=== PATIENT | female | born 1995 ===

== ENCOUNTER 2024-05-17 09:36 | Outpatient (AMB) | payer OTHER, SELFPAY ==
--- NOTE | 2024-05-17 10:26 | MHC.PC.OV ---
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 Intake Note: patient is scheduled to establish care with pcp Research Scientist Required: No Is last menstrual period known: Yes Last menstrual period: 05/17/24 Post menopausal: No Patient : No Allergies amoxicillin Allergy (Severe, Verified 05/17/24 10:28) Hives Medication List - Last Reconciled 05/17/24 by Lamont Rose MD albuterol sulfate 90 mcg/actuation 1 inh inhalation QID cetirizine 10 mg PO DAILY L norgest/e.estradiol-e.estrad 0.15 mg-30 mcg (84)/10 mcg (7) (Simpesse) 1 tab PO DAILY levocetirizine 5 mg PO DAILY Tobacco use date assessed: 05/17/24 Dental Screening Dental Screen Date: 05/17/24 Did you have a dental visit in the last 12 months?: Yes Did you have a dental problem in the last 6 months where you did not have access to dental care?: No Was dental information given to patient?: No HPI 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 ?? Prior PCP:Shira Farfan Last office visit/CPE:? 2 years Acute issue(s):? Asthma, Allergies Weight Mild + PHQ9l ?? PMHx:? Asthma SurgHx:?None FHx:? Mom: Anxiety, Bipolar d.o., MS, Asthma. Dad: Cardiovascular disease. Aunt w/ Breast CA. SocHx:? Nonsmoker. EtOH: Occassional [address] dr at holidays. No drugs PFSH Medical History (Updated 05/17/24 @ 11:07 by Harry Cortes) Anxiety Headache Asthma Family History (Updated 05/17/24 @ 10:38 by Avery [facility]paricio [facility] Mother Asthma Multiple sclerosis Father High blood pressure High cholesterol Cardiovascular disease Paternal Grandmother High blood pressure High cholesterol Diabetes Cardiovascular disease Paternal Grandfather High cholesterol Diabetes Maternal Grandfather Diabetes Sister Bipolar 1 disorder Anxiety Social History Housing: Apartment Patient Tobacco Use Status: Never used Tobacco e-Cigarette/Vaping Use: Never Used Second Hand Smoke Exposure: No service: No Current occupational status: employed Current occupation: [employer] Current occupational exposures/hazards: No Cognitive needs: No Hearing needs: No Vision needs: Yes Female Reproductive History Menstrual Date of last menstrual period: 05/17/24 Questionnaire PHQ-9 Over the last 2 weeks, how often have you been bothered by any of the following problems? 1. Little interest or pleasure in doing things: several days 2. Feeling down, depressed, or hopeless: several days 3. Trouble falling or staying asleep, or sleeping too much: several days 4. Feeling tired or having little energy: several days 5. Poor appetite or overeating: several days 6. Feeling bad about yourself - or that you are a failure or have let yourself or your family down: more than half the days 7. Trouble concentrating on things, such as reading the newspaper or watching television: several days 8. Moving or speaking so slowly that other people could have noticed. Or the opposite - being so fidgety or restless that you have been moving around a lot more than usual: not at all 9. Thoughts that you would be better off or of hurting yourself in some way: not at all Total score: 8 Depression Screening Interpretation: Positive Depression Screening Follow-up: Community Mental Health Worker F/U Depression Screening Done: Yes 48758 - PHQ-9 Billing: Yes Source: Developed by Drs. Tl Olivo, Sayda Cox, Tulio Wiggins and colleagues, with an educational winston from [email or web address]. Thrive Questionnaire Date Thrive assessed: 05/17/24 I am a: Patient What is your living situation today?: I have a steady place to live Within the past 12 months, did the food you bought not last and you didn't have the money to get more?: Often true Within the past 12 months, did you worry whether your food would run out before you got money to buy more?: Often true Do you have trouble paying for medicines?: Yes Do you have trouble getting transportation to medical appointments?: No Do you have trouble paying your heating and electricity bill?: Yes Do you have trouble taking care of your child, family member or friend?: No Do you have trouble with day-to-day activities such as bathing, preparing meals, shopping, managing finances, etc.?: No Are you currently unemployed and looking for a job?: No Are you interested in more education?: No Please select the resources that you would like help with: Food and Paying for medicine Currently or been in a relationship where the following occur: No concerns reported THRIVE Score: 3 AUDIT C Alcohol Use Questionnaire (AUDIT-C) 1. How often do you have a drink containing alcohol?: Monthly or less 2. How many drinks containing alcohol do you have on a typical day when you are drinking?: 1 or 2 3. How often do you have six or more drinks on one occasion?: Never Total Score: 1 LINDA-7 AMB Questionnaire LINDA-7 Date ILNDA - 7 assessed: 05/17/24 Feeling nervous, anxious, or on edge: 1 = Several days Not being able to stop or control worryin = Several days Worrying too much about different things: 1 = Several days Trouble relaxin = Several days Being so restless that it is hard to sit still: 1 = Several days Becoming easily annoyed or irritable: 1 = Several days Feeling afraid as if something awful might happen: 0 = Not at all Total LINDA-7 score (0-4 normal; 5-9 mild; 10-14 moderate; 15-21 severe): 6 Source: Developed by Drs. Tl Olivo, Sayda Cox, Tulio Wiggins and colleagues, with an educational winston from [email or web address]. LINDA-7 Assessment Billing LINDA-7 Assessment Tool: LINDA-7 Assessment 65886 Review of Systems Const Denies chills, Denies fatigue, Denies fever(s), Denies headache(s) and Denies weakness ENT Denies dizziness and Denies headache(s) Card Denies dyspnea Resp Denies cough, Denies dyspnea, Denies wheezing and Denies other (shortness of breath) Musc Denies numbness and Denies tingling Neuro Denies dizziness, Denies headache(s), Denies numbness, Denies tingling and Denies weakness Psych Reports anxiety and Reports depression Endo Denies fatigue Aller/Immun Denies wheezing Physical exam (Primary Care) Vital Signs: Last Vital Signs Temp 99.2 F 05/17/24 10:39 Pulse 91 05/17/24 10:39 Resp 12 04/07/25 10:39 BP 110/70 05/17/24 10:39 Pulse Ox 99 05/17/24 10:39 Oxygen Delivery Method Room Air 05/17/24 10:39 BMI result Body Mass Index 37.7 Tobacco/Smoking Status: Tobacco use Status Tobacco use date assessed 05/17/24 05/17/24 10:42 Patient Tobacco Use Status Never used Tobacco 05/17/24 10:42 e-Cigarette/Vaping Use Never Used 05/17/24 10:42 PHQ-9: PHQ-9 Score PHQ-9: Total score 8 05/17/24 10:50 Depression Screening Interpretation: Positive Depression Screening Follow-up: Community Mental Health Worker F/U Thrive Assessment: Date of Thrive Assessment Date Thrive assessed 05/17/24 05/17/24 10:42 Currently or been in a relationship where the following occur: No concerns reported Const General: well developed; No acute distress Nutritional Appearance: well nourished and obese Orientation/consciousness: patient oriented x3 HENMT Head: Yes normocephalic and Yes atraumatic Eyes General: appearance normal, both eyes and all related structures Pupils: Equal, round and reactive pupils present EOM: EOMs intact bilaterally Resp Effort & Inspection: normal respiratory effort Neuro General: patient oriented x3 and gait normal Cranial nerves: Yes Equal, round and reactive pupils present Psych Affect: normal affect Coding Level of Care Code New Pt Level 3 (53088) Diagnoses Depression with anxiety F41.8 Asthma J45.909 Allergies T78.40XA Obesity E66.9 Screening for STD (sexually transmitted disease) Z11.3 Laboratory exam ordered as part of routine general medical examination Z00.00 Additional Codes LINDA-7 Assessment Billing - LINDA-7 Assessment Tool: LINDA-7 Assessment 08963 ([id number]) PHQ-9 - 67465 - PHQ-9 Billing: Yes ([id number]) Assessment & Plan Assessment & Plan (1) Depression with anxiety: Code(s): F41.8 - Other specified anxiety disorders Category: Medical Plan: Mild?anxiety?depression Will?ask?the?nurse?navigator?to?help?connect?her?with?a?therapist (2) Asthma: Code(s): J45.909 - Unspecified asthma, uncomplicated Category: Medical Plan: Mild?intermittent?asthma?with?allergy?triggers Continue?albuterol She?was?on?a?few?medications?for?allergy?and?we?will?restart?these Referred?to?immunology (3) Allergies: Code(s): T78.40XA - Allergy, unspecified, initial encounter Category: Medical Plan: As?above,?referred?to?immunology (4) Obesity: Code(s): E66.9 - Obesity, unspecified Category: Medical Plan: Check?labs Can?review?at?next?visit (5) Screening for STD (sexually transmitted disease): Code(s): Z11.3 - Encounter for screening for infections with a predominantly sexual mode of transmission Category: Medical Plan: Asymptomatic (6) Laboratory exam ordered as part of routine general medical examination: Code(s): Z00.00 - Encounter for general adult medical examination without abnormal findings Category: Medical Plan: Check labs Orders: Orders Comprehensive [place]. Panel Fast Today Z00.00 - Encounter for general adult medical examination without abnormal findings Microalbumin, Random (w Creat) Today I10 - Essential (primary) hypertension TSH reflex Free T4 Today Z00.00 - Encounter for general adult medical examination without abnormal findings UA CC w/rflx Micro + Cult Today Z00.00 - Encounter for general adult medical examination without abnormal findings Complete Blood Count Auto Diff Today Z00.00 - Encounter for general adult medical examination without abnormal findings Lipid Panel Today Z00.00 - Encounter for general adult medical examination without abnormal findings CT NG by PCR Today Z11.3 - Encounter for screening for infections with a predominantly sexual mode of transmission HIV Ab/Ag Today Z11.3 - Encounter for screening for infections with a predominantly sexual mode of transmission Hepatitis B,C Profile Today Z11.3 - Encounter for screening for infections with a predominantly sexual mode of transmission Syphilis Screen Today Z11.3 - Encounter for screening for infections with a predominantly sexual mode of transmission Referrals Nurse Navigator Referral F41.8 - Other specified anxiety disorders Allergy & Immunology Referral J45.489 - Unspecified asthma, uncomplicated, T78.40XA - Allergy, unspecified, initial encounter Medications: New levocetirizine 5 mg PO DAILY 90 days 90 tabs 3RF T78.40XA - Allergy, unspecified, initial encounter cetirizine 10 mg PO DAILY 90 days 90 tabs 3RF montelukast (Singulair) 10 mg PO DAILY 90 days 90 tabs 0RF J45.909 - Unspecified asthma, uncomplicated, T78.40XA - Allergy, unspecified, initial encounter
[2024-05-17 10:39] VITALS: BP 110/70; PULSE 91; RESP 12; TEMP 37.3; O2SAT 99; BMI 37.7
--- OUTSIDE RECORDS SUMMARY | 2024-05-17 10:55 | XMS_ITS | Clinical Summary ---
Author Organization [facility] it Address [address] [place] [address] Care Team Providers Care Aerospace Project Engineer Name Role Phone Marguerite Melchor MD Primary Care Provider [phone] Allergies Active Allergy Reactions Criticality Noted Date Comments Other Runny nose 02/05/2018 SEASONAL ALLERGIES Penicillins 10/04/2019 Medications predniSONE (DELTASONE) 20 mg tablet Take 3 tablets by mouth on day 1-2, take 2 tablets by mouth on day 3-4, take 1 tablet by mouth on days 5-6. Take with food in the morning. 9 Active L norgest/e.estra dioL-e.estrad (SEASONIQUE) 0.15 mg-30 mcg (84)/10 mcg (7) per tablet Take 1 Tablet by mouth daily. 4 Active cetirizine (ZyrTEC) 10 mg tablet Take 1 Tablet by mouth daily. 4 Active EPINEPHrine (EpiPen 2-Donell) 0.3 mg/0.3 mL injection Inject 0.3 mg into the muscle as needed for Other (anaphylactic reaction). 2-pack. Fill with whichever brand is covered by insurance. 4 Active fluticasone propionate (FLONASE) 50 mcg/actuation nasal spray 2 Sprays by Each Nare route daily for 360 days. 4 Active albuterol HFA (PROAIR HFA ; PROVENTIL HFA ; VENTOLIN HFA) 90 mcg/actuation inhaler Inhale 2 Puffs into the lungs every 6 hours as needed for Cough or Wheezing. 3 Active Active Problems Problem Noted Date Diagnosed Date Asthma 06/29/2018 Overweight (BMI 25.0-29.9) 02/05/2018 Allergic rhinitis 01/16/2018 Overview (12/23/2023): Cetirizine, Benadryl Allergy Borderline hypercholesterolemia 12/31/2017 Immunizations Name Administration Dates Next Due DTaP (Infanrix) 6wks to less than 7yo ,03/05/1999,05/19/1998,03/21,01/24/1998 PUpD-HJK-PPH (Pentacel) 2mo to less than 5yo 03/05/1999,05/19/1998,03/21/1998,01/24 H1N1 Inj Preservative Free 02/17/2009 HPV, Quadrivalent 10/05/2007,06/01/2007,03/31/19 08 Hepatitis B (Ezvdplg-D-Ueyzp , Recombivax HB-Adult) 19yo and older 02/16/2020,07/01/2018,02/04/2018,12/31,05/19/1998,03/21/1998,01/24/1998 HiB 03/05/1999 IPV Inactivated polio (Ipol) 6wks and older 2001,05/19/1998,03/21/1998,01/24 Influenza trivalent, 0.5mL, preservative free (Fluarix; FluLaval; Fluzone) ages 6mo and older (Afluria) 3 years and older 12/01/2019 MMR, measles mumps and rubel la Live (Priorix; M-M-R II) 12mo and older 2001,12/04/1998 Meningococcal MCV4P 06/15/2015,04/04/2010 Pneumococcal polysaccharide 23 valent (Pneumovax 23) 2yo and older 04/16/2019 Tdap Tetanus diptheria acell ular pertussis (Boostrix; Adacel) 7yo and older 02/16/2020,04/04/2010 Varicella live (Varivax) 12m o and older 06/01/2007,12/04/1998 Surgical History Surgery Date Site/Laterality Comments OTHER SURGICAL HISTORY PROCEDURE: DENIES PREVIOUS SURGERY Medical History Medical History Date Comments Allergic rhinitis 01/16/2018 DX:Allergic rh initis; COMMENT: Cetirizine, Benadryl Allergy Borderline hypercholesterolemia 12/31/2017 DX:Borderline hypercholesterolemia Overweight (BMI 25.0-29.9) 02/05/2018 DX:Ov erweight (BMI 25.0-29.9) Asthma 06/29/2018 DX:Asthma Family History Medical History Relation Name Comments Coronary artery disease Father Drug abuse Father No Known Problems Maternal Grandfather No Known Problems Maternal Grandmother Bipolar disorder Mother Depression Mother Multiple sclerosis Mother Asthma, Hypertension,Hypercholesterolemia Diabetes Paternal Grandfather ag e 70 No Known Problems Paternal Grandmother ADD / ADHD Sister Breast cancer Neg Hx Cervical cancer Neg Hx Ovarian cancer Neg Hx Uterine cancer Neg Hx Relation Name Status Comments Father Maternal Grandfather Alive Maternal Grandmother Alive Mother Alive Paternal Grandfather Paternal Grandmother Alive Sister Alive Social History Tobacco Use Types Packs/Day Years Used Date Smoking Tobacco: Never Smokeless Tobacco: Never Alcohol Use Standard Drinks/Week Comments No 0 (1 standard drink = 0.6 oz pur e alcohol) Comments Unknown Sex and Gender Information Value Date Recorded Sex Assigned at Not on file Legal Sex Female 10:55 PM EST Gender Identity Not on file Sexual Orientation Not on file Obstetrics History Last Filed Vital Signs Vital Sign Reading Time Taken Comments Blood Pressure 133/88 08/06/2023 10:55 AM EDT Pulse 110 08/06/2023 10:55 AM EDT Temperature - - Respiratory Rate - - Oxygen Saturation - - Inhaled Oxygen Concentration - - Weight 95.7 kg (211 lb) 07/28/2023 3:02 PM EDT Height 160 cm (5' 3 ) 07/28/2023 3:02 PM EDT Body Mass Index 37.38 07/28/2023 3:02 PM EDT Plan of Treatment Upcoming Encounters Date Type Department Care Team (Late st Contact Info) Description 05/27/2024 2:30 PM EDT Office Visit Adult Medicine [address] [phone] Honey Oseguera PA [address] [place] [id number] Health Maintenance Due Date Last Done Comments Pneumococcal Vaccine: Pediatrics (0 to 5 Years) and At-Risk Patients (6 to 64 Years) (2 of 2 - PCV) 04/15/2020 04/16/2019 Social Influencers of Health Screening 01/19/2022 Depression Screening 09/10/2023 09/09/2022 COVID-19 Vaccine ( - season) 2023 10/28/2022, 07/07/2020, 06/16/2020 Influenza Vaccine (Season Ended) 2024 12/01/2019, 02/17/2009 Cervical Cancer Screening: Pap Smear 09/09/2025 09/09/2022, 09/09/2022, 10/04/2019 Cholesterol Screening (Lipid Panel) 09/14/2027 09/13/2022 DTaP,Tdap,and Td Vaccines (8 - Td or Tdap) 02/15/2030 02/16/2020, 04/04/2010, 06/01/2007, Additional history exists HIB Vaccines Completed 03/05/1999, 02/11, 05/19/1998, Additional history exists IPV Vaccines Completed 2001, 02/11, 05/19/1998, Additional history exists MMR Vaccines Completed 2001, 12/04/1998 Varicella Vaccines Completed 06/01/2007, 12/04/1998 HPV Vaccines Completed 10/05/2007, 05/12, 03/31/2007 Meningococcal ACWY Vaccine Completed 06/15/2015, Hepatitis B Vaccines Completed 02/16/2020, 07/01/2018, 02/04/2018, Additional history exists Gonorrhea/Chlamydia Screening Discontinued 09/09/2022 HIV Screening Completed 09/13/2022 Hepatitis C Screening Completed 09/13/2022 Hepatitis A Vaccines Aged Out No long er eligible based on patient's age to complete this topic Meningococcal B Vacine Aged Out No lo nger eligible based on patient's age to complete this topic RSV Immunization Patients Under 20 months Aged Out No longer eligible based on patient's age to complete this topic Procedures Procedure Name Priority Date/Time Associated Diagnosis Comments HM HEPATITIS C SCREENING Routine 09/13/2022 HM HIV SCREENING Routine 09/13/2022 LIPID PANEL Routine 09/13/2022 DEPRESSION SCREENING Routine 09/09/2022 PAP SMEAR Routine 09/09/2022 GONORRHEA/CHLAMYDIA SCRREENING Routine 09/09/2022 from Last 3 Months or Most Recently Relevant to Health Maintenance Results * HIV Screening (09/13/2022) Pathologist [facility] HIV Screening Abstracted [facility] Provider HEALTH MAINTENANCE Final Result * Hepatitis C Screening (09/13/2022) [facility] Hepatitis C Screening Abstracted Result [facility] Provider HEALTH MAINTENANCE Final Result * (ABNORMAL) Lipid panel (09/13/2022) [facility] LDL/HDL Ratio 4 0 - 4 Triglycerides 77 0 - 150 mg/dL Cholesterol 182 0 - 200 mg/dL HDL 43 >=40 mg/dL LDL Cholesterol 124(A) 0 - 100 mg/dL Blood Venous blood specimen / Unknown Result [facility] Provider LAB BLOOD ORDERABLES Consuelo l Result * Depression Screening (09/09/2022) Pathologist [facility] Depression Screening Abstracted Result [facility] Provider HEALTH MAINTENANCE Final Result * Gonorrhea/Chlamydia Screening (09/09/2022) [facility] Gonorrhea/Chla mydia Screening Abstracted Result [facility] Provider HEALTH MAINTENANCE Final Result * Pap Smear (09/09/2022) [facility] Pap smear No interpretation , abstracted Result [facility] Provider HEALTH MAINTENANCE Final Result from Last 3 Months or Most Recently Relevant to Health Maintenance Care Teams Aerospace Project Engineer Relationship Specialty Start Date End Date Marguerite Melchor MD PCP - General 07/01/22
== END 2024-05-17 11:10 | disposition home or self-care (01) ==
LOC: HO.HMCFM 09:37
PROVIDERS: PCP Family Medicine; Visit Provider Family Medicine
DX: J45.909 Unspecified asthma, uncomplicated (principal); F41.8 Other specified anxiety disorders; Z68.37 Body mass index [BMI] 37.0-37.9, adult; T78.40XA Allergy, unspecified, initial encounter; E66.9 Obesity, unspecified; Z11.3 Encounter for screening for infections with a predominantly sexual mode of transmission

== ENCOUNTER → 2024-05-17 09:36 | Outpatient (BNVA) | payer OTHER, SELFPAY | PROVIDERS: PCP Family Medicine; Visit Provider Family Medicine | DX: Z00.00 Encounter for general adult medical examination without abnormal findings (principal); F41.8 Other specified anxiety disorders; J45.909 Unspecified asthma, uncomplicated; E66.9 Obesity, unspecified; T78.40XA Allergy, unspecified, initial encounter; X58.XXXA Exposure to other specified factors, initial encounter; Y93.9 Activity, unspecified; Y92.9 Unspecified place or not applicable; Y99.9 Unspecified external cause status; Z11.3 Encounter for screening for infections with a predominantly sexual mode of transmission | CPT/HCPCS: 96127; 99202 ==

== ENCOUNTER 2024-05-17 11:17 | Outpatient (REF) | payer OTHER, SELFPAY ==
--- OUTSIDE RECORDS SUMMARY | 2024-05-17 13:32 | XMS_ITS | Clinical Summary ---
Author Organization [facility] it Address [address] [place] [address] Care Team Providers Care Waste Disposal Leakage Tester Name Role Phone Marguerite Melchor MD Primary Care Provider [phone] Allergies Active Allergy Reactions Criticality Noted Date [...] (Infanrix) 6wks to less than 7yo ,03/05/1999,05/19/1998,03/21,01/24/1998 ZOxX-GPD-YVZ (Pentacel) 2mo to less than 5yo 03/05/1999,05/19/1998,03/21/1998,01/24 H1N1 Inj Preservative Free 02/17/2009 HPV, Quadrivalent 10/05/2007,06/01/2007,03/31/19 08 Hepatitis B (Esiqeit-D-Knynm , Recombivax HB-Adult) 19yo and older 02/16/2020,07/01/2018,02/04/2018,12/31,05/19/1998,03/21/1998,01/24/1998 [...] 2:30 PM EDT Office Visit Adult Medicine [address] [phone] Honey Oseguera PA [address] [place] [phone] Health Maintenance Due Date Last Done Comments [...] Results * HIV Screening (09/13/2022) Pathologist [facility] HIV Screening Abstracted [facility] Provider HEALTH MAINTENANCE Final Result * Hepatitis C Screening (09/13/2022) [facility] Hepatitis C Screening Abstracted Result [facility] Provider HEALTH MAINTENANCE Final Result * (ABNORMAL) Lipid panel (09/13/2022) [facility] LDL/HDL Ratio 4 0 - 4 Triglycerides 77 0 - 150 mg/dL Cholesterol 182 0 - 200 mg/dL HDL 43 >=40 mg/dL LDL Cholesterol 124(A) 0 - 100 mg/dL Blood Venous blood specimen / Unknown Result [facility] Provider LAB BLOOD ORDERABLES Consuelo l Result * Depression Screening (09/09/2022) Pathologist [facility] Depression Screening Abstracted Result [facility] Provider HEALTH MAINTENANCE Final Result * Gonorrhea/Chlamydia Screening (09/09/2022) [facility] Gonorrhea/Chla mydia Screening Abstracted Result [facility] Provider HEALTH MAINTENANCE Final Result * Pap Smear (09/09/2022) [facility] Pap smear No interpretation , abstracted Result [facility] Provider HEALTH MAINTENANCE Final Result from Last 3 Months or Most Recently Relevant to Health Maintenance Care Teams Waste Disposal Leakage Tester Relationship Specialty Start Date End Date Marguerite Melchor MD PCP - General 07/01/22
[2024-05-17 13:57] LABS: MANUAL DIFF FLAG NO
[2024-05-17 14:05] LABS: Basophils Percent Auto 0.5 % (0-2); Eosinophils Absolute Auto 0.1 X10*3/uL (0.0-0.4); Eosinophils Percent Auto 1.7 % (0-4); Hematocrit 41.8 % (37.0-47.0); Hemoglobin 13.3 g/dl (12.0-16.0); Imm Gran Abs Auto 0.03 X10*3/uL (0.00-0.03); Imm Gran Pct Auto 0.4 % (0.0-0.4); Lymphocytes Absolute Auto 2.6 X10*3/uL (1.2-4.9); Lymphocytes Percent Auto 30.5 % (20-40); Mean Corpuscular HGB Conc 31.8 g/dl (31.0-35.0); Mean Corpuscular Hemoglobin 27.7 pg (27.0-33.0); Mean Corpuscular Volume 87.1 fL (80.0-98.0); Mean Platelet Volume 10.7 fL (9.4-12.3); Monocytes Absolute Auto 0.5 X10*3/uL (0.1-1.2); Monocytes Percent Auto 5.9 % (2-11); Neutrophils Absolute Auto 5.2 x10*3/uL (2.0-8.3); Platelet Count 316 X10*3/uL (160-400); Red Cell Distribution Width 14.6 % (11.0-16.0); White Blood Count 8.5 X10*3/uL (4.8-10.8)
[2024-05-17 14:09] LABS: Appearance Urine Turbid; Color Urine Yellow; Glucose Urine UA Negative (Negative); Leukocyte Esterase Urine Negative (Negative); Nitrite Urine Negative (Negative); PH 5.5 (5.0-9.0); Specific Gravity - Urine >= 1.030 (1.005-1.025); UMIC TRIGGER UACC YES; Urine Blood Small (1+) (Negative); Urine Ketones Trace mg/dL (Negative); Urine Protein Negative (Neg-Trace)
[2024-05-17 14:18] LABS: Bacteria Urine None Seen (None Seen); Hyaline Casts Urine 0-2 /LPF (0-2); RBC Urine 0-2 /HPF (0-2); Squamous Epithelial Cell Urine 0-2 /HPF (0-2); WBC Urine 0-5 /HPF (0-5)
[2024-05-17 14:29] LABS: Creatinine Urine 262.87 mg/dL; Microalbum/Creatinine Ratio Ur 4.5 ug/mg cr (<30)
[2024-05-17 14:44] LABS: Alanine Aminotransferase 13 U/L (0-31); Albumin Level 4.1 g/dL (3.5-5.0); Alkaline Phosphatase 96 U/L (39-117); Anion Gap 10 (12-20); Aspartate Amino Transferase 26 U/L (5-31); Bilirubin Total 0.4 mg/dL (0.0-1.0); Blood Urea Nitrogen 11 mg/dL (9-16); Calcium 9.1 mg/dL (8.4-10.2); Carbon Dioxide 26 mmol/L (22-29); Chloride 108 mmol/L (96-108); Cholesterol 177 mg/dL (<200); Estimated Glomerular Filt Rate > 60; Glucose Fasting 87 mg/dL (60-99); HDL Cholesterol 42 mg/dL (>40); LDL Cholesterol Calculated 124 mg/dL (<100); Potassium 3.9 mmol/L (3.3-5.1); Sodium 140 mmol/L (135-145); TSH reflex Free T4 2.15 uIU/mL (0.32-4.0); Total Protein 7.6 g/dL (6.5-8.0); Triglycerides 57 mg/dL (<150)
[2024-05-18 04:22] LABS: Syphilis Screen Nonreactive (Nonreactive)
[2024-05-18 04:46] LABS: HBS Num1 969.65 mIU/mL (0-7.99); HBc Num1 0.13 S/CO (0.00-0.79); HBsAGNum1 0.39 S/CO (0.00-0.99); HIV AB/AG Nonreactive (Nonreactive); HIV Num 1 0.06 S/CO (0.00-0.99); Hepatitis B Core Antibody Nonreactive (Nonreactive); Hepatitis B Surface Antigen Negative (Negative); ~HepC Num1 0.28 S/CO (0.00-0.79); ~Hepatitis B Surface Antibody REACTIVE (Nonreactive); ~Hepatitis C Antibody Nonreactive (Nonreactive)
== END 2024-05-17 11:18 | disposition home or self-care (01) ==
LOC: HO.WFDLDS 11:17
PROVIDERS: Visit Provider Family Medicine
DX: Z00.00 Encounter for general adult medical examination without abnormal findings (principal); I10 Essential (primary) hypertension; Z11.3 Encounter for screening for infections with a predominantly sexual mode of transmission
CPT/HCPCS: 36415; 80053; 80061; 81001; 81003; 82043; 82570; 84443; 85025; 86704; 86706; 86780; 86803; 87340; 87389

== ENCOUNTER 2024-06-04 08:19 | Outpatient (AMB) | payer OTHER, SELFPAY ==
--- OUTSIDE RECORDS SUMMARY | 2024-06-04 08:25 | XMS_ITS | Clinical Summary ---
Author Organization [facility] [address] [place] [address] [place] [address] [place] [address] Phone Care Team Providers Care Support Director Name Role Phone Marguerite Melchor MD Primary Care Provider [phone] Allergies Active Allergy Reactions Criticality Noted Date [...] (Infanrix) 6wks to less than 7yo ,03/05/1999,05/19/1998,03/21,01/24/1998 LRdO-NUM-IVD (Pentacel) 2mo to less than 5yo 03/05/1999,05/19/1998,03/21/1998,01/24 H1N1 Inj Preservative Free 02/17/2009 HPV, Quadrivalent 10/05/2007,06/01/2007,03/31/19 08 Hepatitis B (Dhubxhq-M-Lrwsm , Recombivax HB-Adult) 19yo and older 02/16/2020,07/01/2018,02/04/2018,12/31,05/19/1998,03/21/1998,01/24/1998 [...] 07/28/2023 3:02 PM EDT Plan of Treatment Health Maintenance Due Date Last Done Comments Pneumococcal Vaccine: Pediatrics (0 to 5 Years) and At-Risk Patients (6 to 64 Years) (2 of 2 - PCV) 04/15/2020 04/16/2019 Social Influencers of Health Screening 01/19/2022 Depression Screening 09/10/2023 09/09/2022 COVID-19 Vaccine ( season) 2023 10/28/2022, 07/07/2020, 06/16/2020 Influenza Vaccine [...] age to complete this topic Meningococcal B Vaccine Aged Out No l onger eligible based on patient's age to complete this topic RSV Immunization Patients Under 20 months Aged Out No longer eligible based on patient's age to complete this topic Procedures Procedure Name Priority Date/Time Associated Diagnosis Comments HEPATITIS C SCREENING Routine 09/13/2022 HM HIV SCREENING Routine 09/13/2022 LIPID PANEL Routine 09/13/2022 DEPRESSION SCREENING Routine 09/09/2022 HM PAP SMEAR Routine 09/09/2022 GONORRHEA/CHLAMYDIA SCRREENING Routine 09/09/2022 from Last 3 Months or Most Recently Relevant to Health Maintenance Results * HIV Screening (09/13/2022) [facility] HIV Screening Abstracted Result [facility] Provider HEALTH MAINTENANCE Final Result * Hepatitis C Screening (09/13/2022) [facility] Hepatitis C Screening Abstracted [facility] Provider HEALTH MAINTENANCE Final Result * (ABNORMAL) Lipid panel (09/13/2022) [facility] LDL/HDL Ratio 4 0 - 4 Triglycerides 77 0 - 150 mg/dL Cholesterol 182 0 - 200 mg/dL HDL 43 >=40 mg/dL LDL Cholesterol 124(A) 0 - 100 mg/dL Blood Venous blood specimen / Unknown Result [facility] LAB BLOOD ORDERABLES Consuelo l Result * Depression Screening (09/09/2022) [facility] Depression Screening Abstracted Result [facility] Provider HEALTH MAINTENANCE Final Result * Gonorrhea/Chlamydia Screening (09/09/2022) [facility] Gonorrhea/Chla mydia Screening Abstracted Result [facility] Provider HEALTH MAINTENANCE Final Result * Pap Smear (09/09/2022) [facility] Pap smear No interpretation , abstracted Result [facility] Provider HEALTH MAINTENANCE Final Result from Last 3 Months or Most Recently Relevant to Health Maintenance Insurance [facility] Care Teams Support Director Relationship Specialty Start Date End Date Marguerite Melchor MD PCP - General 07/01/22
--- NOTE | 2024-06-04 08:35 | A.OFFPC_ITS ---
Vital Signs 06/04/24 08:38 Height 5 ft 3 in Weight 214 lb 8 oz BMI 38.0 BP 122/76 Blood Pressure Location Lt brachial Position Sitting Respiration 14 Pulse 91 Pulse Source Pulse Oximeter Pulse Oximetry (%) 98 Oxygen Delivery Method Room Air Intake Visit Reasons: discuss weight loss medication Intake Note: Discuss weight loss medication Administrative Associate Required: No Allergies amoxicillin Allergy (Severe, Verified 06/04/24 08:35) Hives environmental allergies Allergy (Severe, Verified 06/04/24 08:36) Runny Nose animal dander Allergy (Intermediate, Verified 06/04/24 08:36) Hives Medication List - Last Reconciled 06/04/24 by Lamont Rose MD albuterol sulfate 90 mcg/actuation 1 inh inhalation QID cetirizine 10 mg PO DAILY 90 days montelukast (Singulair) 10 mg PO DAILY 90 days Tobacco use date assessed: 06/04/24 Dental Screening Dental Screen Date: 05/17/24 HPI discuss weight loss medication HPI Details 28 y/o female presents to discuss weight loss medications. Labs drawn 05/17/24. Reviewed labs with pt. Triglycerides 57. TC 177. LDL 124. HDL 42. Urine concentrated but otherwise fine. PFSH Medical History (Updated 06/04/24 @ 09:04 by Lamont Rose MD) Anxiety Headache Asthma Family History Mother Asthma Multiple sclerosis Father High blood pressure High cholesterol Cardiovascular disease Paternal Grandmother High blood pressure High cholesterol Diabetes Cardiovascular disease Paternal Grandfather High cholesterol Diabetes Maternal Grandfather Diabetes Sister Bipolar 1 disorder Anxiety Social History (Updated 06/04/24 @ 08:41 by Pearl Lisa CMA) Housing: Apartment Alcohol intake: current Patient Tobacco Use Status: Never used Tobacco e-Cigarette/Vaping Use: Never Used Second Hand Smoke Exposure: No service: No Current occupational status: employed Current occupation: [employer] Current occupational exposures/hazards: No Cognitive needs: No Hearing needs: No Vision needs: Yes Questionnaire Thrive Questionnaire Date Thrive assessed: 05/17/24 I am a: Patient What is your living situation today?: I have a steady place to live Within the past 12 months, did the food you bought not last and you didn't have the money to get more?: Often true Within the past 12 months, did you worry whether your food would run out before you got money to buy more?: Often true Do you have trouble paying for medicines?: Yes Do you have trouble getting transportation to medical appointments?: No Do you have trouble paying your heating and electricity bill?: Yes Do you have trouble taking care of your child, family member or friend?: No Do you have trouble with day-to-day activities such as bathing, preparing meals, shopping, managing finances, etc.?: No Are you currently unemployed and looking for a job?: No Are you interested in more education?: No Currently or been in a relationship where the following occur: No concerns reported THRIVE Score: 3 LINDA-7 AMB Questionnaire LINDA-7 Date LINDA - 7 assessed: 05/17/24 Source: Developed by Drs. Tl Olivo, Sayda Cox, Tulio Wiggins and colleagues, with an educational winston from [employer]. Review of Systems Const Denies chills, Denies fatigue, Denies fever(s), Denies headache(s) and Denies weakness ENT Denies dizziness and Denies headache(s) Card Denies dyspnea Resp Denies cough, Denies dyspnea, Denies wheezing and Denies other (shortness of breath) Musc Denies numbness and Denies tingling Neuro Denies dizziness, Denies headache(s), Denies numbness, Denies tingling and Denies weakness Psych Denies anxiety and Denies depression Endo Denies fatigue Aller/Immun Denies wheezing Physical exam (Primary Care) Vital Signs: Last Vital Signs Pulse 91 06/04/24 08:38 Resp 14 06/04/24 08:38 BP 122/76 06/04/24 08:38 Pulse Ox 98 06/04/24 08:38 Oxygen Delivery Method Room Air 06/04/24 08:38 BMI result Body Mass Index 38.0 Tobacco/Smoking Status: Tobacco use Status Tobacco use date assessed 06/04/24 06/04/24 08:38 Patient Tobacco Use Status Never used Tobacco 06/04/24 08:41 e-Cigarette/Vaping Use Never Used 06/04/24 08:41 Thrive Assessment: Date of Thrive Assessment Date Thrive assessed 05/17/24 06/04/24 08:38 Currently or been in a relationship where the following occur: No concerns reported Const General: well developed; No acute distress Nutritional Appearance: obese Orientation/consciousness: patient oriented x3 HENMT Head: Yes normocephalic and Yes atraumatic Eyes General: appearance normal, both eyes and all related structures Pupils: Equal, round and reactive pupils present EOM: EOMs intact bilaterally Resp Effort & Inspection: normal respiratory effort Neuro General: patient oriented x3 and gait normal Cranial nerves: Yes Equal, round and reactive pupils present Psych Affect: normal affect Coding Level of Care Code Est Pt Level 3 (74579) Diagnoses Elevated LDL cholesterol level E78.00 Obesity E66.9 Assessment & Plan Assessment & Plan (1) Elevated LDL cholesterol level: Code(s): E78.00 - Pure hypercholesterolemia, unspecified Category: Medical Plan: She?will?work?on?a?diet?low?in?saturated?fats?and?cholesterol Will?recheck?prior?to?her?September?visit (2) Obesity: Code(s): E66.9 - Obesity, unspecified Category: Medical Plan: Patient?would?like?to?try?Zepbound We?discussed?that else?in?his?medication?and we?can?try?prior?authorization?but?may?need?to?discuss?other?options. Risks/benefits?of?medication?discussed Orders: Orders Lipid Panel Today E78.00 - Pure hypercholesterolemia, unspecified, Z00.00 - Encounter for general adult medical examination without abnormal findings Basic Metabolic Panel Fasting Today E78.00 - Pure hypercholesterolemia, unspecified Medications: New tirzepatide (weight loss) (Zepbound) for 4 weeks 2.5 mg (0.5 mL) subcut QWEEK 28 days 2 mL 3RF E66.812 - Obesity, class 2, Z68.38 - Body mass index [BMI] 38.0-38.9, adult
[2024-06-04 08:38] VITALS: BP 122/76; PULSE 91; RESP 14; O2SAT 98; BMI 38.0
== END 2024-06-04 09:02 | disposition home or self-care (01) ==
LOC: HO.HMCFM 08:19
PROVIDERS: PCP Family Medicine; Visit Provider Family Medicine
DX: E78.00 Pure hypercholesterolemia, unspecified (principal); E66.9 Obesity, unspecified; Z68.38 Body mass index [BMI] 38.0-38.9, adult

== ENCOUNTER → 2024-06-04 08:19 | Outpatient (BNVA) | payer OTHER, SELFPAY | PROVIDERS: PCP Family Medicine; Visit Provider Family Medicine | DX: E78.00 Pure hypercholesterolemia, unspecified (principal); E66.9 Obesity, unspecified; Z68.38 Body mass index [BMI] 38.0-38.9, adult | CPT/HCPCS: 99212 ==

== ENCOUNTER 2024-09-23 10:50 | Outpatient (REF) | payer OTHER, SELFPAY ==
--- OUTSIDE RECORDS SUMMARY | 2024-09-23 12:00 | XMS_ITS | Clinical Summary ---
Author Organization [address] Address [address] [place] [phone] Phone Care Team Providers Care Pharmacist Aide Name Role Phone Unavailable Primary Care Provider Unavailabl e Allergies Active Allergy Reactions Criticality Noted Date [...] (Infanrix) 6wks to less than 7yo ,03/05/1999,05/19/1998,03/21,01/24/1998 [id number]-QCK-YLA (Pentacel) 2mo to less than 5yo 03/05/1999,05/19/1998,03/21/1998,01/24 H1N1 Inj Preservative Free 02/17/2009 HPV, Quadrivalent 10/05/2007,06/01/2007,03/31/19 08 Hepatitis B (Rmaqdro-Q-Rcowi , Recombivax HB-Adult) 19yo and older 02/16/2020,07/01/2018,02/04/2018,12/31,05/19/1998,03/21/1998,01/24/1998 [...] 5 Years) and At-Risk Patients (6 to 49 Years) (2 of 2 - PCV) 04/15/2020 04/16/2019 Social Influencers of Health Screening 01/19/2022 COVID-19 Vaccine ( season) 2023 10/28/2022, 07/07/2020, 06/16/2020 Depression Screening 02/11/2024 09/09/2022 Influenza Vaccine (#1) 2024 12/01/2019, 2009 Cervical Cancer Screening: Pap Smear 09/09/2025 09/09/2022, [...] Diagnosis Comments HEPATITIS C SCREENING Routine 09/13/2022 HIV SCREENING Routine 09/13/2022 LIPID PANEL Routine 09/13/2022 DEPRESSION SCREENING Routine 09/09/2022 PAP SMEAR Routine 09/09/2022 GONORRHEA/CHLAMYDIA SCRREENING Routine 09/09/2022 from Last 3 Months or Most Recently Relevant to Health Maintenance Results * HIV Screening (09/13/2022) Pathologist [facility] HIV Screening Abstracted [facility] Provider HEALTH MAINTENANCE Final Result * Hepatitis C Screening (09/13/2022) Pathologist [facility] Hepatitis C Screening Abstracted Result [facility] Provider HEALTH MAINTENANCE Final Result * (ABNORMAL) Lipid panel (09/13/2022) [facility] LDL/HDL Ratio 4 0 - 4 Triglycerides 77 0 - 150 mg/dL Cholesterol 182 0 - 200 mg/dL HDL 43 >=40 mg/dL LDL Cholesterol 124(A) 0 - 100 mg/dL Blood Venous blood specimen / Unknown Result [facility] Provider LAB BLOOD ORDERABLES Consuelo l Result * Depression Screening (09/09/2022) Pathologist [facility] Depression Screening Abstracted Result [facility] Provider HEALTH MAINTENANCE Final Result * Gonorrhea/Chlamydia Screening (09/09/2022) Pathologist [facility] Gonorrhea/Chla mydia Screening Abstracted Result [facility] Provider HEALTH MAINTENANCE Final Result * Pap Smear (09/09/2022) Pathologist [facility] Pap smear No interpretation , abstracted Result [facility] Provider HEALTH MAINTENANCE Final Result from Last 3 Months or Most Recently Relevant to Health Maintenance Insurance [facility] [employer]
--- OUTSIDE RECORDS SUMMARY | 2024-09-23 12:00 | XMS_ITS | Clinical Summary ---
Author Organization [facility] Address [address] [place] [phone] Phone Care Team Providers Care Spot Machine Operator Name Role Phone Lamont Rose MD Primary Care Provider Allergies Active Allergy Reactions Criticality Noted Date Comments Penicillins Dermatitis,Fever,Hiv es,Itching,Nausea and/or Vomiting,Rash Low 10/04/2019 Medications cetirizine (ZYRTEC) 5 mg/5 mL Soln Orally Active Encounters Date Type Department Care Team Description 08/20/2024 12:08 PM EDT - 08/20/2024 11:59 PM EDT Hospital Encounter [facility] [address] [place] [address] Tima Gonzales MD Discharge Disposition: Home or Self Care 08/20/2024 11:40 AM EDT Office Visit [facility] [address] [place] [address] Tima Gonzales MD Encounter for gynecological examination without abnormal finding (Primary Dx); Abnormal uterine bleeding (AUB); Fertility testing from Last 3 Months Family History Medical History Relation Comments Diabetes Father Heart disease Father Depression Mother Multiple sclerosis Mother Relation Status Comments Father Mother Social History Tobacco Use Types Packs/Day Years Used Date Smoking Tobacco: Never Passive Smoke Exposure: Never Smokeless Tobacco: Never Tobacco Cessation:Counseling Given: Not Answered Alcohol Use Standard Drinks/Week Comments Not Currently 0 (1 standard drink = 0.6 oz pur e alcohol) Education Answer Date Recorded Are you interested in more education? Not on jud e 07/28/2024 Are you concerned about learning? Not on file 07/28/2024 No 07/28/2024 No 07/28/2024 Digital Access Answer Date Recorded No 07/28/2024 No 07/28/2024 Reliable internet access at home? Not on file 07/28/2024 Device with a working camera? Not on file Comments No Sex and Gender Information Value Date Recorded Sex Assigned at Not on file Legal Sex Female 10:24 PM EDT Gender Identity Not on file Sexual Orientation Not on file Last Filed Vital Signs Vital Sign Reading Time Taken Comments Blood Pressure 122/86 08/20/2024 11:45 AM EDT Pulse - - Temperature - - Respiratory Rate - - Oxygen Saturation - - Inhaled Oxygen Concentration - - Weight 64.8 kg (142 lb 12.8 oz) 02/29/2016 3:28 AM EST Height 158.8 cm (5' 2.5 ) 02/29/2016 3:28 AM EST Body Mass Index 25.7 02/29/2016 3:28 AM EST Plan of Treatment Upcoming Encounters Date Type Department Care Team (Late st Contact Info) Description 09/30/2024 1:10 PM EDT Appointment [facility] [place], OB Ultrasound [address] [place] [address] Tima Gonzales MD [address] [place] [address] 09/30/2024 2:50 PM EDT Office Visit [facility] [address] [place] [address] Tima Gonzales MD [address] [place] [address] Health Maintenance Due Date Last Done Comments DEPRESSION SCREENING 2009 HEPATITIS C SCREENING 11/19/2015 HIV ONE-TIME SCREENING (18-65 YEARS) 11/19/2015 COVID-19 VACCINE ( season) 2023 10/28/2022, 07/07/2020, 06/16/2020 PAP SMEAR 08/21/2027 08/20/2024 Adult Td,Tdap Booster 02/15/2030 02/16/2020, 011 HIB VACCINES Completed 03/05/1999, 02/11, 05/19/1998, Additional history exists HPV VACCINES Completed 10/05/2007, 05/12, 03/31/2007 MENINGOCOCCAL VACCINES (ACWY) Completed 06/15/2015, 04/04/2010 PNEUMOCOCCAL VACCINES (0-49 years) Aged Out 04/16/2019 No longer eligible based on patient's age to complete this topic SMOKING STATUS SCREENING (Once After 26 Yrs) Completed 08/20/2024 HEPATITIS A VACCINES Aged Out No long er eligible based on patient's age to complete this topic MENINGOCOCCAL VACCINES (B) Aged Out N o longer eligible based on patient's age to complete this topic Medical Devices Not on file Procedures Procedure Name Priority Date/Time Associated Diagnosis Comments HEMOGLOBIN A1C Routine 08/20/2024 12:18 PM EDT Fertility testing HCG (QUANTITATIVE, BLOOD) Routine 08/20/2024 12:18 PM EDT Abnormal uterine bleeding (AUB) TSH WITH REFLEX Routine 08/20/2024 12:18 PM EDT Abnormal uterine bleeding (AUB) TESTOSTERONE, TOTAL AND FREE Routine 08/20/2024 12:18 PM EDT Abnormal uterine bleeding (AUB) INSULIN LEVEL Routine 08/20/2024 12:18 PM EDT Abnormal uterine bleeding (AUB) PROLACTIN Routine 08/20/2024 12:18 PM EDT Abnormal uterine bleeding (AUB) LH Routine 08/20/2024 12:18 PM EDT Abnormal uterine bleeding (AUB) DHEA-SULFATE Routine 08/20/2024 12:18 PM EDT Abnormal uterine bleeding (AUB) ESTRADIOL Routine 08/20/2024 12:18 PM EDT Abnormal uterine bleeding (AUB) FSH Routine 08/20/2024 12:18 PM EDT Abnormal uterine bleeding (AUB) ANTIMULLERIAN HORMONE (AMH) Routine 08/20/2024 12:18 PM EDT Abnormal uterine bleeding (AUB) PAP TEST Routine 08/20/2024 12:00 AM EDT from Last 3 Months Results * Testosterone, total and free (08/20/2024 12:18 PM EDT) FREE TESTOSTERONE 1.08 ng/dL [facility] TESTOSTERONE, TOTAL 40 ng/dL [facility] Blood 08/20/2024 12:1 8 PM EDT 08/20/2024 12:20 PM EDT us Tima Gonzales MD LAB BLOOD ORDERABLES Fin al Result [address] [id number] * DHEA-SULFATE (08/20/2024 12:18 PM EDT) DHEAS 167 83 - 377 mcg/dL [facility] LAB MED/PATH [facility]PERIOR Blood 08/20/2024 12:1 8 PM EDT 08/20/2024 12:20 PM EDT Tima Gonzales MD LAB BLOOD ORDERABLES Fin al Result [facility] LAB MED/PATH [address] [address] [place] [address] * TSH with reflex (08/20/2024 12:18 PM EDT) TSH 2.03 0.27 - 4.20 uIU/mL [facility] Blood 08/20/2024 12:1 8 PM EDT 08/20/2024 12:21 PM EDT Tima Gonzales MD LAB BLOOD ORDERABLES Fin al Result Performing Organization Address [facility] Co de Phone Number [address] [address] * Antimullerian hormone (AMH) (08/20/2024 12:18 PM EDT) Antimullerian hormone 5.3 0.89 - 9.9 ng/mL [facility] LAB MED/PATH [facility]PERIOR Comment: (NOTE) ADDITIONAL INFORMATION The testing method is an electrochemiluminescence assay manufactured by [employer] and performed on the Titus system. Values obtained with different assay methods or kits may be different and cannot be used interchangeably. This test has been modified from the manufacturers instructions. Its performance characteristics were determined by [facility] in a manner consistent with CLIA requirements. This test has not been cleared or approved by the U.S. Food and Drug Administration. Blood 08/20/2024 12:1 8 PM EDT 08/20/2024 12:20 PM EDT Tima Gonzales MD LAB BLOOD ORDERABLES Fin al Result Performing Organization Address [facility] Phone Number [facility] LAB MED/PATH [facility]IOR [address] [place] [address] * Prolactin (08/20/2024 12:18 PM EDT) PROLACTIN 11.3 4.8 - 23.3 ng/mL [facility] Blood 08/20/2024 12:1 8 PM EDT 08/20/2024 12:21 PM EDT Tima Gonzales MD LAB BLOOD ORDERABLES Fin al Result Performing Organization Address [facility]/State/ZIP Co de Phone Number [address] [address] * Insulin Level (08/20/2024 12:18 PM EDT) Pathologist [facility] INSULIN 15.3 2.6 - 25.0 uIU/mL [facility] Blood 08/20/2024 12:1 8 PM EDT 08/20/2024 12:20 PM EDT us Tima Gonzales MD LAB BLOOD ORDERABLES Fin al Result [address] [address] * Estradiol (08/20/2024 12:18 PM EDT) [facility] ESTRADIOL 71 pg/mL [facility] Comment: FEMALE: Follicular: Less than 12 to 233 pg/ml Midcycle: 41 - 398 pg/ml Luteal: 22 - 341 pg/ml Postmenopausal: less than 5 - 138 pg/ml Blood 08/20/2024 12:1 8 PM EDT 08/20/2024 12:21 PM EDT us Tima Gonzales MD LAB BLOOD ORDERABLES Fin al Result Performing Organization Address [facility] Co de Phone Number [address] [address] * HCG (Quantitative, Blood) (08/20/2024 12:18 PM EDT) [facility] HCG BETA 0.2 mIU/mL [facility] Comment: Interpretation: FEMALE: Negative: Less than or equal to 1 mIU/mL. 4 Weeks Post Conception: 9.5 - 750 mIU/mL. 12 Weeks Post Conception: [address] - [address] mIU/mL. Test Methodology Heather [id number] Patient results determined by assays using different manufacturers or methods may not be comparable. Blood 08/20/2024 12:1 8 PM EDT 08/20/2024 12:20 PM EDT us Tima Gonzales MD LAB BLOOD ORDERABLES Fin al Result Performing Organization Address [facility]/ZIP Co de Phone Number [address] [address] * Hemoglobin A1c (08/20/2024 12:18 PM EDT) HEMOGLOBIN A1C 5.3 4.3 - 5.8 % [facility] Blood 08/20/2024 12:1 8 PM EDT 08/20/2024 12:20 PM EDT Tima Gonzales MD LAB BLOOD ORDERABLES Fin al Result Performing Organization Address [facility] Co de Phone Number [address] [address] * LH (08/20/2024 12:18 PM EDT) LH 7.1 IU/L [facility] Comment: Interpretation: FEMALE: Follicular: 2.4 - 12.6 mIU/ml Ovulate: 4.0 - 99.6 mIU/ml Luteal: 1.0 - 11.4 mIU/ml Postmenopausal: 7.7 - 58.5 mIU/ml Blood 08/20/2024 12:1 8 PM EDT 08/20/2024 12:21 PM EDT Tima Gonzales MD LAB BLOOD ORDERABLES Fin al Result Performing Organization Address [facility]/ZIP Co de Phone Number [address] [address] * FSH (08/20/2024 12:18 PM EDT) FSH 4.6 IU/L [facility] Comment: FEMALE: Follicular: 3.5 - 12.5 mIU/ml. Ovulate: 4.7 - 21.5 mIU/ml. Luteal: 1.7 - 7.7 mIU/ml. Postmenopausal: 25.8 - 134.8 mIU/ml. Blood 08/20/2024 12:1 8 PM EDT 08/20/2024 12:21 PM EDT us Tima Gonzales MD LAB BLOOD ORDERABLES Fin al Result [address] [address] * Pap Test (08/20/2024 12:00 AM EDT) 08/20/2024 08/23/2024 10: 00 AM EDT Narrative SEE NARRATIVE - 08/25/2024 10:43 AM EDT [address] [address] Police Specialist: Ji Ramos MD REPAIRER VENEER SHEET Cytology Report FINAL DIAGNOSIS A. PAP SMEAR (THIN PREP) CE: SPECIMEN ADEQUACY: Satisfactory for evaluation; transformation zone present. INTERPRETATION: NEGATIVE FOR INTRAEPITHELIAL LESION OR MALIGNANCY. This specimen was analyzed by the automated ThinPrep Imaging System ([employer] and the selected loza were reviewed by a micrographics services supervisor. Electronically Signed Out By: MAURY Moraes(ASCP) The Pap test is a screening test primarily for squamous cancers and precursors and has associated false-negative and false-positive results. New technologies such as liquid-based preparations may decrease but will not eliminate all false-negative results. Regular sampling and follow-up of unexplained clinical signs and symptoms are recommended to minimize false negative results. CLINICAL HISTORY Date of Last Menstrual Period: Not Provided Menstrual History: Unknown Contraceptive History: BCPs Other Clinical Conditions: Screening Pap SPECIMEN SOURCE A: PAP SMEAR (THIN PREP) CE Patient Name: MARY GIBSON : 1995 (Age: 28) Sex: F Institution[facility] Location: [facility] Date of Collection: 08/20/2024 Date of Reported: 08/25/2024 10:43 Results to: Tima Gonzales MD us Tima Gonzales MD CYTOLOGY ORDERABLES Consuelo l Result SEE NARRATIVE from Last 3 Months Insurance [employer] NON NSPG PCP [facility] [employer] [facility] [employer] NON NSPG PCP [facility] NON NSPG [facility] NON NSPG PCP [facility] NON NSPG PCP [facility] [facility] Care Teams Spot Machine Operator Relationship Specialty Start Date End Date Lamont Rose MD [address] [place] [address] PCP - General Family Medicine 07/28/24 Additional Source Comments The information contained in this document represents components of the legal health record. It is not the complete legal health record.[facility]
--- OUTSIDE RECORDS SUMMARY | 2024-09-23 12:00 | XMS_ITS | Encounter Summary ---
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 Non Urgent Medic al Question Adult Medicine [address] [address] Ayala Sams PA-C Social History Tobacco Use Types Packs/Day Years Used Date Smoking Tobacco: Never Smokeless Tobacco: Never Alcohol Use Standard Drinks/Week Comments No 0 (1 standard drink = 0.6 oz pur e alcohol) Alcohol Habits Answer Date Recorded How often do you have a drink containing alcohol ? Monthly or less 07/05/2021 How many drinks containing a lcohol do you have on a typical day when you are drinking? 1 or 2 07/05/2021 How often do you have six or more drinks on one occasion? Never 07/05/2021 Social Isolation Answer Date Recorded In a typical week, how many times do you talk on the phone with family, friends, or neighbors? More than three times a week 07/05/2021 How often do you get togethe r with friends or relatives? More than three times a week 07/05/2021 How often do you attend [facility] or cheondoism services? Never 07/05/2021 Do you belong to any clubs o r organizations such as mu-ism groups, unions, fraternal or athletic groups, or school groups? No 07/05/2021 How often do you attend meet ings of the clubs or organizations you belong to? Never 07/05/2021 Are you now , , , , never or living with a partner? Never 07/05/2021 Physical Activity Answer Date Recorded On average, how many days pe r week do you engage in moderate to strenuous exercise (like walking fast, running, jogging, dancing, swimming, biking, or other activities that cause a light or heavy sweat)? 2 days 07/05/2021 On average, how many minutes do you engage in exercise at this level? 50 min 07/05/2021 Stress Answer Date Recorded Do you feel stress - tense, restless, nervous, or anxious, or unable to sleep at night because your mind is troubled all the time - these days? To some extent 07/05/2021 Financial Resource Strain Answer Date R ecorded How hard is it for you to pa y for the very basics like food, housing, medical care, and heating? Somewhat hard 07/05/2021 Intimate Partner Violence Answer Date R ecorded Within the last year, have y ou been afraid of your partner or ex-partner? No 07/05/2021 Within the last year, have y ou been humiliated or emotionally abused in other ways by your partner or ex-partner? No Within the last year, have y ou been kicked, hit, slapped, or otherwise physically hurt by your partner or ex-partner? No 07/05/2021 Within the last year, have y ou been raped or forced to have any kind of sexual activity by your partner or ex-partner? No 07/05/2021 Food Insecurity Answer Date Recorded Within the past 12 months, y ou worried that your food would run out before you got money to buy more. Never true 07/05/2021 Within the past 12 months, t he food you bought just didn't last and you didn't have money to get more. Never true 07/05/2021 Transportation Needs Answer Date Record ed In the past 12 months, has l ack of transportation kept you from medical appointments or from getting medications? No 06/11 In the past 12 months, has l ack of transportation kept you from meetings, work, or getting things needed for daily living? No 07/05/2021 Housing Stability Answer Date Recorded In the last 12 months, was t here a time when you were not able to pay the mortgage or rent on time? No 07/05/2021 In the last 12 months, how many places have you lived? Not asked In the last 12 months, was t here a time when you did not have a steady place to sleep or slept in a detention (including now)? No 07/05/2021 Sex Assigned at Date Recorded Female 05/02/2020 1:48 PM E [employer] Job Start Date Occupation Industry Not on file Not on file Not on file documented as of this encounter Miscellaneous Notes * Telephone Encounter - Crissy Veloz M.A. - 12/28/2020 8:41 AM ESTFrom: China Gibson To: Ingrid Sams Sent: 12/27/2020 9:05 PM EST Subject: Schedule Physical Hello, I am trying to schedule an appointment for an Annual physical since I believe I am overdue for one.I understand My primary doctor is leaving so I need to get a new one. I called during the day but the call kept disconnecting. 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
[2024-09-23 13:39] LABS: Anion Gap 13 (12-20); Blood Urea Nitrogen 10 mg/dL (9-16); Calcium 9.2 mg/dL (8.4-10.2); Carbon Dioxide 25 mmol/L (22-29); Chloride 106 mmol/L (96-108); Cholesterol 175 mg/dL (<200); Estimated Glomerular Filt Rate > 60; HDL Cholesterol 46 mg/dL (>40); Potassium 4.0 mmol/L (3.3-5.1); Sodium 140 mmol/L (135-145); Triglycerides 58 mg/dL (<150)
== END 2024-09-23 10:51 | disposition home or self-care (01) ==
LOC: HO.HMGCLDS 10:50
PROVIDERS: PCP Family Medicine; Visit Provider Family Medicine
DX: Z00.00 Encounter for general adult medical examination without abnormal findings (principal); E78.00 Pure hypercholesterolemia, unspecified; E66.9 Obesity, unspecified; Z68.38 Body mass index [BMI] 38.0-38.9, adult
CPT/HCPCS: 36415; 80048; 80061; 99212; 99395

== ENCOUNTER 2024-09-23 13:29 | Outpatient (AMB) | payer OTHER, SELFPAY ==
[2024-09-23 13:47] VITALS: BP 130/86; PULSE 101; RESP 16; TEMP 36.7; O2SAT 99; BMI 38.8
--- NOTE | 2024-09-23 13:47 | MHC.PC.OV ---
Vital Signs 09/23/24 13:47 Height 5 ft 3 in Weight 219 lb BMI 38.8 BP 130/86 Blood Pressure Location Rt brachial Position Sitting Respiration 16 Pulse 101 H Pulse Source Pulse Oximeter Temp 98.0 F Temp Source Oral Pulse Oximetry (%) 99 Oxygen Delivery Method Room Air Intake Visit Reasons: CPE with f/u labs and health maint. 30 mins Allergies amoxicillin Allergy (Severe, Verified 09/23/24 13:50) Hives environmental allergies Allergy (Severe, Verified 09/23/24 13:50) Runny Nose animal dander Allergy (Intermediate, Verified 09/23/24 13:50) Hives Medication List - Last Reconciled 09/23/24 by Lamont Rose MD albuterol sulfate 90 mcg/actuation 1 inh inhalation QID 90 days cetirizine 10 mg PO DAILY 90 days epinephrine (EpiPen 2-Donell) 0.3 mg (0.3 mL) IM Q4H PRN 30 days montelukast (Singulair) 10 mg PO DAILY 90 days Tobacco use date assessed: 09/23/24 Dental Screening Dental Screen Date: 09/23/24 Did you have a dental visit in the last 12 months?: Yes Did you have a dental problem in the last 6 months where you did not have access to dental care?: No Was dental information given to patient?: Patient has dentist HPI CPE with f/u labs and health maint. 30 mins HPI Details 28 y/o female presents for a CPE with f/u labs and health maint. Labs drawn 09/23/24. Reviewed labs with pt. Triglycerides 58. TC 175. LDL 118. HDL 46. PFSH Medical History Anxiety Headache Asthma Family History Mother Asthma Multiple sclerosis Father High blood pressure High cholesterol Cardiovascular disease Paternal Grandmother High blood pressure High cholesterol Diabetes Cardiovascular disease Paternal Grandfather High cholesterol Diabetes Maternal Grandfather Diabetes Sister Bipolar 1 disorder Anxiety Social History Housing: Apartment Alcohol intake: current Patient Tobacco Use Status: Never used Tobacco e-Cigarette/Vaping Use: Never Used Second Hand Smoke Exposure: No service: No Current occupational status: employed Current occupation: [employer] Current occupational exposures/hazards: No Cognitive needs: No Hearing needs: No Vision needs: Yes Questionnaire PHQ-9 Over the last 2 weeks, how often have you been bothered by any of the following problems? 1. Little interest or pleasure in doing things: several days 2. Feeling down, depressed, or hopeless: several days 3. Trouble falling or staying asleep, or sleeping too much: several days 4. Feeling tired or having little energy: several days 5. Poor appetite or overeating: several days 6. Feeling bad about yourself - or that you are a failure or have let yourself or your family down: more than half the days 7. Trouble concentrating on things, such as reading the newspaper or watching television: several days 8. Moving or speaking so slowly that other people could have noticed. Or the opposite - being so fidgety or restless that you have been moving around a lot more than usual: not at all 9. Thoughts that you would be better off or of hurting yourself in some way: not at all Total score: 8 Depression Screening Interpretation: Positive Depression Screening Follow-up: Community Mental Health Worker F/U Depression Screening Done: Yes Source: Developed by Drs. Tl Olivo, Sayda Cox, Tulio Wiggins and colleagues, with an educational winston from [employer]. Thrive Questionnaire Date Thrive assessed: 05/17/24 I am a: Patient What is your living situation today?: I have a steady place to live Within the past 12 months, did the food you bought not last and you didn't have the money to get more?: Often true Within the past 12 months, did you worry whether your food would run out before you got money to buy more?: Often true Do you have trouble paying for medicines?: Yes Do you have trouble getting transportation to medical appointments?: No Do you have trouble paying your heating and electricity bill?: Yes Do you have trouble taking care of your child, family member or friend?: No Do you have trouble with day-to-day activities such as bathing, preparing meals, shopping, managing finances, etc.?: No Are you currently unemployed and looking for a job?: No Are you interested in more education?: No Currently or been in a relationship where the following occur: No concerns reported THRIVE Score: 3 AUDIT C Alcohol Use Questionnaire (AUDIT-C) 1. How often do you have a drink containing alcohol?: Monthly or less 2. How many drinks containing alcohol do you have on a typical day when you are drinking?: 1 or 2 3. How often do you have six or more drinks on one occasion?: Never Total Score: 1 LINDA-7 AMB Questionnaire LINDA-7 Date LINDA - 7 assessed: 05/17/24 Feeling nervous, anxious, or on edge: 1 = Several days Not being able to stop or control worryin = Several days Worrying too much about different things: 1 = Several days Trouble relaxin = Several days Being so restless that it is hard to sit still: 1 = Several days Becoming easily annoyed or irritable: 1 = Several days Feeling afraid as if something awful might happen: 0 = Not at all Total LINDA-7 score (0-4 normal; 5-9 mild; 10-14 moderate; 15-21 severe): 6 Source: Developed by Drs. Tl Olivo, Sayda Cox, Tulio Wiggins and colleagues, with an educational winston from [employer]. Review of Systems Const Denies chills, Denies fatigue, Denies fever(s), Denies headache(s) and Denies weakness Eyes Denies change in vision ENT Denies dizziness, Denies headache(s), Denies hearing loss, Denies nasal congestion, Denies sinus pain, Denies sinus pressure and Denies sore throat Card Denies chest pain, Denies lightheadedness, Denies dyspnea and Denies other (palpitations) Resp Denies cough, Denies dyspnea and Denies wheezing GI Denies abdominal pain, Denies melena, Denies hematochezia, Denies change in bowel habits, Denies dyspepsia and Denies nausea Denies hematuria and Denies dysuria Musc Denies abnormal gait, Denies myalgias, Denies arthralgias, Denies numbness and Denies tingling Skin/Breast Denies rash, Denies unusual bruising and Denies wounds Neuro Denies abnormal gait, Denies dizziness, Denies headache(s), Denies memory loss, Denies numbness, Denies Sensory deficit (Neuro), Denies tingling and Denies weakness Psych Denies anxiety, Denies depression and Denies memory loss Endo Denies cold intolerance, Denies fatigue, Denies heat intolerance, Denies polydipsia and Denies polyuria Chucky/Lymph Denies easy bleeding and Denies easy bruising Aller/Immun Denies wheezing Physical exam (Primary Care) Vital Signs: Last Vital Signs Temp 98.0 F 09/23/24 13:47 Pulse 101 H 09/23/24 13:47 Resp 16 09/23/24 13:47 BP 130/86 09/23/24 13:47 Pulse Ox 99 09/23/24 13:47 Oxygen Delivery Method Room Air 09/23/24 13:47 BMI result Body Mass Index 38.8 Tobacco/Smoking Status: Tobacco use Status Tobacco use date assessed 09/23/24 09/23/24 13:53 Patient Tobacco Use Status Never used Tobacco 09/23/24 13:53 e-Cigarette/Vaping Use Never Used 09/23/24 13:53 PHQ-9: PHQ-9 Score PHQ-9: Total score 8 09/23/24 13:53 Depression Screening Interpretation: Positive Depression Screening Follow-up: Community Mental Health Worker F/U Thrive Assessment: Date of Thrive Assessment Date Thrive assessed 05/17/24 09/23/24 13:53 Currently or been in a relationship where the following occur: No concerns reported Const General: no acute distress, well developed, alert and awake Nutritional Appearance: well nourished Orientation/consciousness: patient oriented x3 HENMT Head: Yes normocephalic and Yes atraumatic Ears: hearing grossly normal bilaterally and TM's normal bilaterally General nose exam: Normal external nose present and Normal nares present Mouth: Normal oral and palatal mucosa present and moist mucous membranes Teeth and gingiva: dentition normal Throat: Yes posterior oropharynx normal Eyes General: appearance normal, both eyes and all related structures Pupils: Equal, round and reactive pupils present and Pupil accommodation reflex normal EOM: EOMs intact bilaterally Neck Neck: Yes normal visual inspection, Yes no lymphadenopathy and Yes trachea midline Thyroid: Thyroid normal Carotids: no bruits Lymphatic: no lymphadenopathy noted Chest Chest palpation & inspection: normal inspection of the chest Resp Effort & Inspection: normal respiratory effort Auscultation: clear to auscultation bilaterally Cardio Rate: regular rate Rhythm: regular rhythm Heart sounds: S1 normal heart sound present, S2 normal heart sound present, no gallops, no murmurs and no rubs Bruits: no abdominal aortic bruits and no carotid bruits GI Palpation (GI): No Abdominal aortic bruit present, Soft to palpation, nontender, No hepatosplenomegaly present and No Rebound tenderness present Auscultation: normal bowel sounds General: Yes no CVA tenderness Back/Spine/Pelvis Back: no CVA tenderness Cervical Spine: cervical ROM normal and No Cervical spine tenderness Thoracic/Lumbar Spine: thoraco-lumbar ROM normal, No pain with thoraco-lumbar ROM, No thoracic spinal tenderness and No lumbar spinal tenderness Skin Lesions: no lesions Rashes: no rashes Trauma: no lacerations or abrasions Wounds: no wounds Nails: normal Neuro General: patient oriented x3 Cranial nerves: Yes Equal, round and reactive pupils present Cognition (Neuro): normal cognition Gait exam (Neuro): Normal gait present Motor exam (neuro): 5/5 motor strength present throughout Sensory Exam: No Sensory deficit (Neuro) Deep tendon reflexes (DTR's): Right patellar reflex intensity grade: 2+ and Left patellar reflex intensity grade: 2+ Extrem General: Yes normal to inspection and No edema Psych Appearance: grossly normal Affect: normal affect Attitude: cooperative Thought process: Normal thought process present Coding Level of Care Code Est Pt Level 3 (88656) Est Pt Prev Care 18-39y([id number]) Diagnoses Adult general medical exam Z00.00 Elevated LDL cholesterol level E78.00 Screening for cervical cancer Z12.4 Obesity E66.9 Assessment & Plan Assessment & Plan (1) Adult general medical exam: Code(s): Z00.00 - Encounter for general adult medical examination without abnormal findings Category: Medical Plan: 28-year-old female presents for complete physical exam Encouraged healthy diet with lifestyle and plenty exercise (2) Elevated LDL cholesterol level: Code(s): E78.00 - Pure hypercholesterolemia, unspecified Category: Medical Plan: Cholesterol levels have improved but still above goal of less than 100 for her LDL cholesterol Continue working at a diet lower in saturated fats and cholesterol Encouraged exercise and weight loss (3) Screening for cervical cancer: Code(s): Z12.4 - Encounter for screening for malignant neoplasm of cervix Category: Medical Plan: Patient says she gets Pap smears at [facility] in [place] Will request report (4) Obesity: Code(s): E66.9 - Obesity, unspecified Category: Medical Plan: Morbid obesity. Patient gained about 5 lb since her last visit Lipids have improved but still high Referred to metabolic clinic Orders: Orders Lipid Panel Today Z00.00 - Encounter for general adult medical examination without abnormal findings Comprehensive [place]. Panel Fast Today Z00.00 - Encounter for general adult medical examination without abnormal findings Referrals Metabolic Clinic Referral E66.9 - Obesity, unspecified, E78.00 - Pure hypercholesterolemia, unspecified
== END 2024-09-23 14:19 | disposition home or self-care (01) ==
LOC: HO.HMCFM 13:30
PROVIDERS: PCP Family Medicine; Visit Provider Family Medicine
DX: Z00.00 Encounter for general adult medical examination without abnormal findings (principal); E78.00 Pure hypercholesterolemia, unspecified; E66.9 Obesity, unspecified; Z68.38 Body mass index [BMI] 38.0-38.9, adult